=== PATIENT | female | born 1980 | race Caucasian/White ===

== ENCOUNTER 2021-12-12 10:37 | Emergency (ER) | payer SELFPAY ==
[2021-12-12 10:55] VITALS: BP 137/83; PULSE 97; RESP 20; TEMP 98.4; BMI 46.0
[2021-12-12] MEDS ORDERED: traMADol HCL 50 MG TABLET PO ONE (12:12)
[2021-12-12] MEDS ORDERED: traMADol HCL 50 MG TABLET ONE (12:20)
== END 2021-12-12 12:50 | disposition left against medical advice (07) ==
LOC: JERFT 10:37
DX: B02.9 Zoster without complications (principal)
CPT/HCPCS: 99283-25